=== PATIENT | male | born 1950 | race Caucasian/White ===

== ENCOUNTER 2022-07-28 03:05 | Emergency (ER) | payer MEDICARE, OTHER ==
[2022-07-28 03:50] LABS: BASOPHILS PERCENT AUTO 0.3 % (0.2-1.2); EOSINOPHILS ABSOLUTE AUTO 0.3 x10^3/uL (0.0-0.5); EOSINOPHILS PERCENT AUTO 3.8 % (0.0-4.0); HEMATOCRIT 35.3 % (40.0-52.0); HEMOGLOBIN 11.5 g/dL (14.0-18.0); IMMATURE GRAN ABSOLUTE AUTO 0.02 x10^3/uL (0.00-0.07); LYMPHOCYTES ABSOLUTE AUTO 1.4 x10^3/uL (1.0-4.8); LYMPHOCYTES PERCENT AUTO 19.2 % (25.0-50.0); MEAN CORPUSCULAR HGB CONC 32.6 g/dL (32.0-36.0); MEAN CORPUSCULAR VOLUME 88.9 fL (78.0-93.0); MONOCYTES ABSOLUTE AUTO 0.5 x10^3/uL (0.0-0.8); MONOCYTES PERCENT AUTO 7.3 % (2.0-11.0); NEUTROPHILS ABSOLUTE AUTO 4.9 x10^3/uL (1.8-7.7); NEUTROPHILS PERCENT AUTO 69.1 % (50.0-80.0); PLATELET COUNT,PLT 158 x10^3/uL (130-400); RED BLOOD CELL COUNT 3.97 x10^6/uL (4.5-6.0); WHITE BLOOD CELL COUNT,WBC 7.1 x10^3/uL (4.0-10.0)
[2022-07-28 04:02] LABS: INR 1.5 (2.0-3.5); PROTHROMBIN TIME 15.5 SEC (9.5-12.2)
[2022-07-28] MEDS: Sodium Chloride 0.9% 1,000 ML IV ONE ×3 (04:05→04:45)
[2022-07-28 04:20] LABS: CALCIUM 8.2 mg/dL (8.5-10.1); CREATININE 1.3 mg/dL (0.70-1.30); EST CRCL DRUG DOSING (CG) 55.55 mL/min; POTASSIUM,K 4.1 mmol/L (3.5-5.1)
[2022-07-28 04:22] LABS: ANION GAP 12.1 mmol/L (5-15)
[2022-07-28] MEDS: Ondansetron 4 MG/2 ML SDV IVPUSH ONE (04:28)
[2022-07-28] MEDS: fentaNYL 50 MCG/ML SDV IVPUSH ONE (04:30)
[2022-07-28] MEDS ORDERED: Norepinephrine Bit/D5W Premix 0 ML ONE (05:24)
[2022-07-28] MEDS: Ondansetron 8 MG in Sodium Chloride 0.9% 100 ML IV ONE (05:28)
[2022-07-28] MEDS: Morphine 2 MG/ML SYRINGE IVPUSH ONE (05:32)
== END 2022-07-28 05:38 | disposition short-term general hospital (02) ==
LOC: VM.ED 03:05
DX: R07.81 Pleurodynia (principal); J94.2 Hemothorax; I95.9 Hypotension, unspecified; E66.9 Obesity, unspecified; Z68.29 Body mass index [BMI] 29.0-29.9, adult; Z91.040 Latex allergy status; Z88.0 Allergy status to penicillin; Z91.041 Radiographic dye allergy status; Z79.899 Other long term (current) drug therapy; Z90.49 Acquired absence of other specified parts of digestive tract
CPT/HCPCS: 36415; 71045; 80048; 85025; 85610; 93005; 93010; 94760; 96360; 96361; 96374; 96375; 99284; 99285-25; J2270; J2405; J3010; J3490; J7030

== ENCOUNTER 2024-02-09 00:45 | Emergency (ER) | payer MEDICARE, OTHER | END 2024-02-09 01:30 | disposition home or self-care (01) | LOC: VM.ED 00:45 | DX: R68.2 Dry mouth, unspecified (principal); F41.9 Anxiety disorder, unspecified; I48.91 Unspecified atrial fibrillation; J45.909 Unspecified asthma, uncomplicated; K21.9 Gastro-esophageal reflux disease without esophagitis; E66.9 Obesity, unspecified; Z68.30 Body mass index [BMI] 30.0-30.9, adult; Z95.2 Presence of prosthetic heart valve; Z90.49 Acquired absence of other specified parts of digestive tract; Z88.0 Allergy status to penicillin; Z91.040 Latex allergy status; Z91.041 Radiographic dye allergy status; Z91.048 Other nonmedicinal substance allergy status; Z79.51 Long term (current) use of inhaled steroids; Z79.82 Long term (current) use of aspirin; Z79.01 Long term (current) use of anticoagulants; Z79.899 Other long term (current) drug therapy | CPT/HCPCS: 99283; 99284 ==